=== PATIENT | male | born 1960 | race Caucasian/White ===

== ENCOUNTER 2018-03-06 08:51 | Day surgery (SDC) | payer OTHER ==
[2018-02-25 14:05] VITALS: BMI 25.5
--- NOTE | 2018-03-06 07:40 | HP ---
History & Physical Update - History History: No Change - Physical Physical: No Change - Assessment Assessment: No Change - Plan Plan: No Change (Initial H&P completed 03/04/18 by Gisele Carlson NP. LBP with radiation below knees bilat. No new complaints or medications.)
[2018-03-06] MEDS ORDERED: GABAPENTIN 300 MG CAPSULE (FP) PO STA (09:08)
[2018-03-06] MEDS ORDERED: oxyCODONE HCL 10 MG SUSTAINED ACTING TABLET PO STA (09:08)
[2018-03-06] MEDS ORDERED: GABAPENTIN 300 MG CAPSULE (FP) ONE (09:30)
[2018-03-06] MEDS ORDERED: oxyCODONE HCL 10 MG SUSTAINED ACTING TABLET ONE (09:30)
[2018-03-06] MEDS ORDERED: DEXAMETHASONE SOD PHOSPHATE/PF 10 MG/ML SDV ONE (10:16)
[2018-03-06] MEDS ORDERED: BUPIVACAINE HCL/PF (5 MG/ML) 30 ML VIAL IJ ONE ×2 (10:17→11:07)
[2018-03-06] MEDS ORDERED: MIDAZOLAM HCL 2 MG/2 ML SINGLE DOSE VIAL ONE ×2 (10:17→11:02)
[2018-03-06] MEDS ORDERED: LIDOCAINE 1%/EPI 1:100000 (20 ML MULTI DOSE VIAL) ONE (10:52)
[2018-03-06] MEDS ORDERED: methylPREDNISolone ACET (DEPO) 40 MG/1 ML VIAL ONE (10:52)
[2018-03-06] MEDS ORDERED: THROMBIN (BOVINE) 5,000 UNIT VIAL TP ONE ×2 (10:52→11:54)
[2018-03-06] MEDS ORDERED: PROPOFOL 20 ML ONE (11:02)
[2018-03-06] MEDS ORDERED: ceFAZolin SODIUM 1 GM VIAL ONE ×2 (11:25→13:47)
[2018-03-06] MEDS ORDERED: LIDOCAINE 1%/EPI 1:100000 (50 ML MULTI DOSE VIAL) INF ONE (11:30)
[2018-03-06] MEDS ORDERED: GELATIN SPONGE,ABSORBABLE 1 GM PACKET TP ONE (11:54)
[2018-03-06] MEDS ORDERED: methylPREDNISolone ACET (DEPO) 40 MG/1 ML VIAL IM ONE ×2 (11:55→12:30)
--- NOTE | 2018-03-06 12:48 | OP ---
Operative Note - Note: Operative Date: 03/06/18 Pre-Operative Diagnosis: Lumbar spinal stenosis with radiculopathy Operation: L3-L5 bilateral laminectomy Post-Operative Diagnosis: Same as Pre-op Surgeon: Zachary Lawrence Custodial Supervisor: Karl Li Anesthesiologist/SERVICE TEAM LEADER: Nilton Calvo (TLIP in holding) Anesthesia: Spinal Fluid Volume Replaced (mls): 700 Operative Report Dictated: Yes
--- NOTE | 2018-03-06 12:48 | SURG ---
Surgery Medical Reviewer Note Medical Reviewer: Karl Li PA-C Date of Service: 03/06/18 Diagnosis: Lumbar stenosis with radiculopathy Procedure: L3-L5 bilateral laminectomy I was present for the entirety of the operative procedure. For further detail, please refer to operative report. Visit type - Case Type Case Type: Scheduled - New patient This patient is new to me today: Yes Date on this admission: 03/06/18
[2018-03-06] MEDS ORDERED: ONDANSETRON 4 MG/2 ML VIAL ONE (12:51)
[2018-03-06] MEDS ORDERED: DEXAMETHASONE SOD PHOSPHATE 4 MG/1 ML VIAL ONE (12:51)
--- NOTE | 2018-03-06 13:09 | OP ---
DATE OF OPERATION: 03/06/2018 PREOPERATIVE DIAGNOSIS: Spinal stenosis, L3-4, L4-5. POSTOPERATIVE DIAGNOSIS: Spinal stenosis, L3-4, L4-5. PROCEDURE PERFORMED: Laminectomy, L3-4, L4-5. SURGEON: Zachary Lawrence MD GOLD LAYER: ASUNCION Garcia ESTIMATED BLOOD LOSS: 50 mL INTRAVENOUS FLUIDS: Per Anesthesia. ANESTHESIA: Spinal/TLIP. COMPLICATIONS: None. DISPOSITION: Patient brought to the PACU in stable condition. INDICATION FOR SURGERY: The patient is a 58-year-old gentleman who has been suffering from pain from his back down his legs. X-rays and MRI were completed which noted that he had spinal stenosis at L3-4 and L4-5. He had gone through an exhaustive course of treatment for this, which included medications, physical therapy as well as injections. Unfortunately, his pain continued to persist despite all this. At this point, risks, benefits, and alternatives were discussed, and the patient consented to surgery. DESCRIPTION OF PROCEDURE: Patient was brought to the operating room by the anesthesia staff. After appropriate patient identification was performed, spinal anesthesia was given. A TLIP block was also given. Patient was able to position himself prone onto the OR table with all areas of bony prominences well padded at this time. Two needles were placed into his back to shanice off the L3 to L5 segment. X-ray was taken to confirm this as correct. [place] were removed, and 10 mL of lidocaine with epinephrine were injected into his back at this time. His back was prepped and draped in a sterile manner. At this point, a timeout was completed. An incision was made from the top of L3 down to the bottom of L5. Dissection was carried down to the fascia. Fascia was split open at this time, and appropriate retractors were then placed in. A spinal needle was placed onto the L3 lamina to shanice off the L3-4 level. An x-ray was taken to confirm this as correct. The needle was removed, and the interspinous ligament at L3-4 and L4-5 was removed. The spinous process at L4 was removed. The lamina at L4 was removed. A complete decompression was performed such that by the end of the procedure the L4 and L5 nerve roots appeared to be well decompressed. All bleeding was well controlled at this time. Steroid was placed over the nerve root. FloSeal was placed over that. The fascia was closed using a No. 1 Vicryl suture. Subcutaneous tissues were closed with 2-0 Vicryl suture. Skin was closed with 3-0 Monocryl suture. Dermabond was applied. Steri-Strips were applied. A sterile dressing was applied. Patient was placed supine on the OR bed and brought to the PACU in stable condition. Sanam GUERRA/[id number]
[2018-03-06] MEDS ORDERED: ONDANSETRON 4 MG/2 ML VIAL IVPUSH PRN (13:26)
[2018-03-06] MEDS ORDERED: oxyCODONE HCL 5 MG TABLET PO PRN (13:26)
[2018-03-06] MEDS ORDERED: LACTATED RINGERS SOLUTION 1,000 ML IV SCH (13:30)
[2018-03-06 14:07] VITALS: TEMP 97.5
[2018-03-06] MEDS ORDERED: ePHEDrine SULFATE 50 MG/1 ML AMPULE ONE (14:10)
[2018-03-06 15:39] VITALS: PULSE 72
[2018-03-06 15:41] VITALS: BP 116/72
== END 2018-03-06 15:25 | disposition home or self-care (01) ==
LOC: FASU 08:51
PROVIDERS: ATTEND Orthopaedic Surgery Orthopaedic Surgery of the Spine
PROC: 01NB0ZZ Release Lumbar Nerve, Open Approach (ICD-10-PCS; principal; 2018-03-06 11:11)
DX: M48.061 Spinal stenosis, lumbar region without neurogenic claudication (principal); M48.07 Spinal stenosis, lumbosacral region
CPT/HCPCS: 72100-TC-FY; 94760